=== PATIENT | female | born 1980 ===

== ENCOUNTER 2018-07-22 02:15 | Emergency (ER) | payer SELFPAY ==
[2018-07-22 02:34] VITALS: BMI 25.9
[2018-07-22 02:36] VITALS: O2SAT 100
[2018-07-22 03:39] LABS: BASO % 0.6 % (0.0-2.0); EOS % 0.3 % (0.0-4.0); HEMOGLOBIN 11.8 g/dL (12.0-16.0); LYMPH # 1.2 K/uL (1.0-4.3); LYMPH % 18.7 % (20.0-40.0); MEAN CELL VOLUME 83.7 fl (81.0-99.0); MEAN CORPUSCULAR HEMOGLOBIN 28.4 pg (27.0-31.0); MEAN CORPUSCULAR HGB CONC 33.9 g/dL (33.0-37.0); MONO # 0.5 K/uL (0.0-0.8); MONO % 7.9 % (0.0-10.0); NEUT # 4.6 K/uL (1.8-7.0); NEUT % 72.5 % (50.0-75.0); RBC 4.15 Mil/uL (3.80-5.20); RED CELL DISTRIBUTION WIDTH 13.5 % (11.5-14.5); WHITE BLOOD COUNT 6.4 K/uL (4.8-10.8)
--- NOTE | 2018-07-22 03:43 | ED PDOC ---
HPI: Chest Pain Time Seen by Provider: 07/22/18 02:53 Chief Complaint (Nursing): Chest Pain Chief Complaint (Provider): Chest Pain History Per: Patient History/Exam Limitations: no limitations Onset/Duration Of Symptoms: Days (x 1 month ) Current Symptoms Are (Timing): Still Present Quality: "Pain" Associated Symptoms: Other (belching) Additional Complaint(s): 38 year old female with no significant medical history presents to the ED for evaluation of intermittent, left sided chest pain for the last month associated with belching. Pain sometimes causes numbness and tingling in her left arm. Patient was seen at [facility] on June 23, had a full workup done and was discharged with anxiety. She followed up with [facility] where she had labs performed. Patient has another follow up on Sunday. Denies nausea, vomiting and diaphoresis. PMD: [facility] Past Medical History Reviewed: Historical Data, Nursing Documentation, Vital Signs Vital Signs: Last Vital Signs Temp 97.8 F 07/22/18 02:34 Pulse 82 07/22/18 02:34 Resp 18 07/22/18 02:34 BP 118/79 07/22/18 02:34 Pulse Ox 100 07/22/18 02:34 Primary Care Provider: Non [facility] Provider, - Medical History PMH: No Chronic Diseases - Surgical History Other surgeries: Right oophorectomy for mass and double breast implants - Family History Family History: States: Unknown Family Hx - Allergies Allergies/Adverse Reactions: Allergies Allergy/AdvReac Type Severity Reaction Status Date / Time No Known Allergies Allergy Verified 07/22/18 02:34 Review of Systems ROS Statement: Except As Marked, All Systems Reviewed And Found Negative Constitutional: Negative for: Sweats Cardiovascular: Positive for: Chest Pain (left sided), Other (numbness and tingling in left arm) Gastrointestinal: Positive for: Other (belching). Negative for: Nausea, Vomiting Physical Exam - Reviewed Nursing Documentation Reviewed: Yes Vital Signs Reviewed: Yes - Physical Exam Appears: Positive for: No Acute Distress Head Exam: Positive for: ATRAUMATIC, NORMAL INSPECTION, NORMOCEPHALIC Skin: Positive for: Normal Color, Warm, DRY Eye Exam: Positive for: EOMI, Normal appearance, PERRL Neck: Positive for: Normal, Painless ROM, Supple Cardiovascular/Chest: Positive for: Regular Rate, Rhythm, Chest Non Tender, Edema, Other (RN Myriam was marketing financial analyst). Negative for: Murmur Respiratory: Positive for: Normal Breath Sounds. Negative for: Respiratory Distress Gastrointestinal/Abdominal: Positive for: Normal Exam, Soft. Negative for: Tenderness Back: Positive for: Normal Inspection. Negative for: L CVA Tenderness, R CVA Tenderness Extremity: Positive for: Normal ROM (x 4). Negative for: Deformity Neurological/Psych: Positive for: Awake, Alert, Normal Tone, Oriented (x 3). Negative for: Motor/Sensory Deficits - Laboratory Results Result Diagrams: 07/22/18 03:20 07/22/18 03:20 - ECG O2 Sat by Pulse Oximetry: 100 (RA) Pulse Ox Interpretation: Normal Medical Decision Making Medical Decision Makin:12 Impression: 38 year old female with left sided chest pain Initial Plan: --EKG --CMP --CBC --CXR --D Dimer --TSH --Troponin --Urine preg --Urine dip 05:02 Labs reviewed and reveal no clinically significant findings. Chest x-ray shows no active disease. Patient is encouraged to follow at as schedule with [facility] in two days as well as GI referral. Diagnosis is atypical chest pain. ------ Scribe Attestation: Documented by Elysia Cazares, acting as a scribe Mandi Thomas MD Provider Scribe Attestation: All medical record entries made by the Scribe were at my direction and personally dictated by me. I have reviewed the chart and agree that the record accurately reflects my personal performance of the history, physical exam, medical decision making, and the department course for this patient. I have also personally directed, reviewed, and agree with the discharge instructions and disposition Disposition - Clinical Impression Clinical Impression: Atypical chest pain - Patient ED Disposition Is Patient to be Admitted: No - Disposition Referrals: Jeremie Houston MD, PhD [Staff Provider] - Disposition: Routine/Home Disposition Time: 05:02 Condition: STABLE Instructions: Chest Pain That Is Not Caused by the Heart (DC) Forms: [employer] (Latvian) Print Language: SLOVENIAN
[2018-07-22 03:47] LABS: ALB/GLOB RATIO 1.4 (1.0-2.1); ALBUMIN 4.2 g/dL (3.5-5.0); ALT/SGPT 28 U/L (9-52); AST/SGOT 18 U/L (14-36); BLOOD UREA NITROGEN 14 mg/dl (7-17); CALCIUM 9.4 mg/dL (8.4-10.2); GFR NON-AFRICAN AMERICAN > 60
[2018-07-22 05:50] VITALS: BP 109/60; PULSE 72; RESP 16; TEMP 98.1
--- NOTE | 2018-07-22 08:14 | RAD ---
Date of service: 07/22/2018 HISTORY: chest pain COMPARISON: No prior. TECHNIQUE: Chest PA and lateral views FINDINGS: LUNGS: No active pulmonary disease. PLEURA: No significant pleural effusion identified. No pneumothorax apparent. CARDIOVASCULAR: No aortic atherosclerotic calcification present. Normal cardiac size. No pulmonary vascular congestion. OSSEOUS STRUCTURES: No significant abnormalities. VISUALIZED UPPER ABDOMEN: Normal. OTHER FINDINGS: Bilateral breast implantation identified. IMPRESSION: No acute cardiopulmonary disease appreciated.
--- NOTE | 2018-07-22 19:26 | CARD ---
APPROVED REPORT Date of service: 07/22/2018 EKG Measurement Heart [id number] <Conclusion> Normal sinus rhythm Possible Left atrial enlargement Low voltage QRS Borderline ECG
== END 2018-07-22 03:05 | disposition home or self-care (01) ==
LOC: H.ER 02:15
DX: R07.9 Chest pain, unspecified (principal)